=== PATIENT | male | born 1960 | race Caucasian/White ===

== ENCOUNTER 2018-06-14 00:08 | Emergency (ER) | payer MEDICARE, MEDICAID ==
[~2018-06-14] VITALS: Ht 182.9 cm; Wt 109.7 kg
[~2018-06-14 00:08] MED LIST: APAP500 PO; ASPIR 8181 MG PO; ATORVASTATIN CA40 MG PO; B COMPLETE1 EAC1 PO; COLACE100 MG PO; DEPO-TESTO200 MG/1 M IM; EFFIENT10 MG PO; GLUCOSAMINE HC500 MG PO; LEVOTHYROXIN0.075 MG PO; LIDODERM 5%1 PATC1 TRANSDERM; MEN 50 PLUS MU1 EACH PO; MOBIC15 MG PO; MYRBETRIQ25 MG PO; NICOTINE TRANSD21 M1; NICOTINE TRANSD21 M1 TRANSDERM; PRINIVIL40 MG PO; PROTONIX 20 MG20 M1 PO; TOPROL XL25 MG PO; VALIUM5 MG PO; VESICARE10 M1 PO; VITAMIN D1000 UNI1 PO; VITAMIN E400 UNIT PO; ZINC CHELATE50 MG PO; ZOLOFT100 MG PO
[2018-06-14 02:03] VITALS: BP 105/62
== END 2018-06-14 02:04 | disposition home or self-care (01) ==
LOC: M.ERS 00:08
DX: S60.212A Contusion of left wrist, initial encounter (principal); S60.812A Abrasion of left wrist, initial encounter; Z88.5 Allergy status to narcotic agent; W54.0XXA Bitten by dog, initial encounter; Y93.89 Activity, other specified; Y92.89 Other specified places as the place of occurrence of the external cause; Y99.8 Other external cause status